=== PATIENT | female | born 1990 | race Caucasian/White ===

== ENCOUNTER 2018-05-22 23:07 | Emergency (ER) | payer BC ==
[2018-05-23] MEDS: LIDOCAINE 2% (MDV) 20 ML INJ INJ (05:42)
[2018-05-23] MEDS: IBUPROFEN 800 MG TAB PO (05:44)
== END 2018-05-23 07:29 | disposition home or self-care (01) ==
LOC: FTE 23:07
DX: S81.011A Laceration without foreign body, right knee, initial encounter (principal); V29.40XA Motorcycle driver injured in collision with unspecified motor vehicles in traffic accident, initial encounter; Y92.410 Unspecified street and highway as the place of occurrence of the external cause
CPT/HCPCS: 12002; 73562; 99283-25